=== PATIENT | female | born 1995 | race Two or more races ===

== ENCOUNTER → 2024-10-25 | Outpatient (CLI) | payer MEDICAID ==
[2024-10-25 10:29] LABS: Basophils # (auto) 0 10 ^3/uL (0-0.2); Basophils % (auto) 0.2 % (0.0-2.0); Eosinophils # (auto) 0.1 10 ^3/uL (0-0.8); Eosinophils % (auto) 0.9 % (0.0-7.0); Hematocrit 38.5 % (36.0-46.0); Hemoglobin 13.4 g/dL (12.2-16.2); Lymphocytes # (auto) 1.7 10 ^3/uL (0.4-5.4); Lymphocytes % (auto) 16.6 % (10.0-50.0); Mean Corpuscular Hemoglobin 29.8 pg (28.0-32.0); Mean Corpuscular Hgb Conc. 34.7 g/dL (32.0-36.0); Mean Corpuscular Volume 85.7 fL (80.0-100.0); Monocytes # (auto) 0.6 10 ^3/uL (0-1.3); Monocytes % (auto) 6.1 % (0.0-12.0); Neutrophils # (auto) 7.9 10 ^3/uL (1.6-8.6); Neutrophils % (auto) 76.2 % (37.0-80.0); Nucleated Red Blood Cells % 0.2 %; Platelet Count (auto) 274 10^3/uL (140-450); Red Blood Cells 4.49 10^6/uL (4.0-5.20); Red Cell Distribution Width 14.2 % (11.8-14.3); White Blood Cell 10.3 10^3/uL (4.4-10.8)
[2024-10-25 11:06] LABS: Albumin 4.1 g/dL (3.2-4.8); Alkaline Phosphatase 56 U/L (46-116); Anion Gap 13 (5-15); Aspartate Aminotransferase 20 U/L (13-40); Blood Urea Nitrogen 9 mg/dL (9-23); Calcium 9.7 mg/dL (8.7-10.4); Carbon Dioxide 21 mmol/L (20-31); Chloride 104 mmol/L (98-107); Glucose 91 mg/dL (74-106); Potassium 3.6 mmol/L (3.5-5.1); Sodium 138 mmol/L (136-145)
[2024-10-25 11:07] LABS: Bilirubin, Total 0.4 mg/dL (0.2-1.0); Total Protein 7.1 g/dL (5.7-8.2)
[2024-10-25 11:10] LABS: Alanine Aminotransferase 41 U/L (7-40); Cholesterol 215 mg/dL (< 200); HDL Cholesterol 67 mg/dL (40-59); LDL Cholesterol 125 mg/dL (< 100); Triglycerides 153 mg/dL (< 150)
[2024-10-25 11:12] LABS: Thyroid Stimulating Hormone 1.75 uIU/mL (0.55-4.78)
[2024-10-25 11:28] LABS: Beta HCG, Quantitative 14697.4 mIU/mL (1.5-4.2)
[2024-10-25 11:29] LABS: Amphetamine Screen, Urine Neg (NEGATIVE); Barbiturate Scree,Urine Neg (NEGATIVE); Benzodiazephine Screen, Urine Neg (NEGATIVE); Cannabinoid Screen, Urine Neg (NEGATIVE); Cocaine Screen, Urine Neg (NEGATIVE); Opiate Scree,Urine Neg (NEGATIVE); Phencyclidine Screen, Urine Neg (NEGATIVE)
[2024-10-26 08:06] LABS: RPR Non Reactive (Non Reactive); Varicella Zoster IgG Antibody Reactive (Non Reactive)
[2024-10-26 23:06] LABS: Chlamydia Trachomatis, NAA Negative (Negative); Neisseria gonorrhoeae, NAA Negative (Negative)
== END | disposition home or self-care (01) ==
LOC: LAB 09:14
PROVIDERS: ATTEND Obstetrics & Gynecology
DX: Z34.00 Encounter for supervision of normal first pregnancy, unspecified trimester (principal); Z3A.00 Weeks of gestation of pregnancy not specified
CPT/HCPCS: 36415; 80053; 80061; 80307; 83036; 84439; 84443; 84702; 85025; 86592; 86703; 86762; 86787; 86850; 86900; 86901; 87086; 87340; 87902

== ENCOUNTER 2025-01-18 07:37 | Observation (INO) | payer MEDICAID ==
[2025-01-18] MEDS ORDERED: PREN-96 PO (12:04)
--- NOTE | 2025-01-18 12:08 | DVH ---
Procedure: US BIOPHYSICAL PROFILE 01/18/2025 11:29 AM Indication: GDMA1 Comparison: None Technique: Sonogram of gravid uterus utilizing grayscale and color techniques. FINDINGS: Single living intrauterine gestation. Presentation: Breech Placenta: Fundal heart rate: 135 bpm BRENT: 12.4 cm, DVP: 5.3 cm Maternal cervix: Closed, 3.4 cm in length Biophysical Profile: breathing score: 2 movement score: 2 tone: 2 Quantitative BRENT score: 2 Total score: 8/8 IMPRESSION: 1. Single living as above. 2. Biophysical profile score: 8/8.
--- NOTE | 2025-01-20 08:02 | DVHDS2 ---
Physician Discharge Progress N Final Diagnosis: iup at 31 wks gdm Operations or Procedures: Operations or Procedures nst reactive reviewed Condition on Discharge: Good Disposition: Home Discharge Instructions: Diet: Consistent carbohydrate Activity: No Restrictions, As Tolerated Medications: na Follow Up Care: Specialist: 1w Discharge Statement: "Patient was advised to return to the ER or call 911 if any headaches, dizziness, shortness of breath, chest pain, abdominal pain, bleeding, fevers, or worsening of medical condition. Patient was counseled about treatment plan, medications, possible side effects, patientverbalized understanding. All questions were answered to the best of my ability. This discharge took greater then 30 minutes in planning, reviewing documentation, counseling the patient, and discussing with other team members." Visit Coding OBGYN Date of Service: January 18, 2025 Billing Provider: RYLAND LLOYD DO SPECIAL EQUIPMENT TECHNICIAN Common Visit Codes: [id number] OBS CARE (HIGH) SPECIAL EQUIPMENT TECHNICIAN Procedure Codes: 67990-36- NON-STRESS TEST RYLAND LLOYD DO January 20, 2025 08:02
== END 2025-01-18 12:27 | disposition home or self-care (01) ==
LOC: LDRP 10:56 → UNDOADMOB 11:10 → LDRP 11:10
PROVIDERS: ADMIT Obstetrics & Gynecology; ATTEND Obstetrics & Gynecology
DX: O24.419 Gestational diabetes mellitus in pregnancy, unspecified control (principal); Z98.890 Other specified postprocedural states; Z79.899 Other long term (current) drug therapy; Z3A.31 31 weeks gestation of pregnancy
CPT/HCPCS: 59025; 76819; 81002; 82948; 82962; 94760; G0378

== ENCOUNTER 2025-01-23 06:54 | Observation (INO) | payer MEDICAID ==
[~2025-01-23] VITALS: Ht 144.8 cm; Wt 64.0 kg
[~2025-01-23 06:54] MED LIST: PREN-96 PO
--- NOTE | 2025-01-23 09:01 | DVH ---
BIOPHYSICAL PROFILE HISTORY: GDMA1 TECHNIQUE: Multiple transabdominal real-time grayscale sonographic images through the gravid uterus of the fetus with duplex Doppler color flow and M-mode spectral analysis FINDINGS: BIOPHYSICAL PROFILE: breathing score: 2 movement score: 2 tone score: 2 Quantitative BRENT score: 2 (BRENT: 13.4 Cm.) Total score: 8 The cervix not well visualized Single live fetus in breech presentation. heart rate 144 beats per minute. IMPRESSION: Biophysical profile score: 8/8
[2025-01-23] MEDS: TERBUTALINE SULFATE 1 MG/ML 1ML VIAL SC SCH (09:35)
[2025-01-23] MEDS: BETAMETHASONE ACET (30mg/5ml) 5ml Vial 6mg/ml IM SCH (09:36)
--- NOTE | 2025-01-23 09:44 | DVHDS2 ---
Physician Discharge Progress N Final Diagnosis: testing for GDM, A1 and now PTL Operations or Procedures: Operations or Procedures 29yo IUP@32.2wks, denies UCs/LOF/VB, +FM. Pt has appt with JUSTIN Bolden at [facility] office today. VSS NST reactive TOCO: UCs q3-5 initially, after treatment no UCs PO hydration (2 venu's since she has been awake) Terbutaline x1 Procardia 10mg PO given First dose of Betamethasone IM given SVE: FT/THICK/HIGH FKC/PTL precautions reviewed. Dr. Russo consulted, do CVL sono in office today, agrees with POC. Condition on Discharge: Stable Disposition: Home Discharge Instructions: Diet: Consistent carbohydrate Activity: See Comment Activity comment: pelvic rest Follow Up/Referral: f/u with scheduled visit at [facility] office today for cervical length ultrasound Medications: see med list Follow Up Care: Specialist: f/u on 01/24/25 for second betamethasone Discharge Statement: "Patient was advised to return to the ER or call 911 if any headaches, dizziness, shortness of breath, chest pain, abdominal pain, bleeding, fevers, or worsening of medical condition. Patient was counseled about treatment plan, medications, possible side effects, patientverbalized understanding. All questions were answered to the best of my ability. This discharge took greater then 30 minutes in planning, reviewing documentation, counseling the patient, and discussing with other team members." Visit Coding OBGYN Date of Service: January 23, 2025 Billing Provider: RAMYA SANABRIA CNM MANAGER CUSTOM Common Visit Codes: [id number] OBS CARE (HIGH) MANAGER CUSTOM Procedure Codes: 74149-39- NON-STRESS TEST RAMYA SANABRIA CNM January 23, 2025 09:44
[2025-01-23] MEDS ORDERED: NIFE10CA52 PO (09:47)
[2025-01-23] MEDS: NIFEdipine 10 MG CAP PO ONE (10:26)
== END 2025-01-23 10:30 | disposition home or self-care (01) ==
LOC: UNDOADMOB 08:00 → LDRP 08:00 → UNDODISOB 10:30
PROVIDERS: ADMIT Obstetrics & Gynecology; ATTEND Obstetrics & Gynecology
DX: O24.419 Gestational diabetes mellitus in pregnancy, unspecified control (principal); O60.03 Preterm labor without delivery, third trimester; Z3A.32 32 weeks gestation of pregnancy
CPT/HCPCS: 59025; 76819; 81002; 82948; 82962; 94760; 96372; G0378; J0702; J3105

== ENCOUNTER 2025-01-24 09:05 | Observation (INO) | payer MEDICAID ==
[~2025-01-24] VITALS: Ht 149.9 cm; Wt 59.0 kg
[~2025-01-24 09:05] MED LIST changes: +NIFE10CA52 PO
[2025-01-24] MEDS: BETAMETHASONE ACET (30mg/5ml) 5ml Vial 6mg/ml IM ONE (09:54)
--- NOTE | 2025-01-24 14:34 | DVHDS2 ---
Physician Discharge Progress N Final Diagnosis: PTL, 2nd [place] Operations or Procedures: Operations or Procedures NST REVIWED REACTIVE Condition on Discharge: Good Disposition: Home Discharge Instructions: Diet: Consistent carbohydrate Activity: Light activity Follow Up/Referral: Weekly NST Medications: NA Follow Up Care: Specialist: 1W Discharge Statement: "Patient was advised to return to the ER or call 911 if any headaches, dizziness, shortness of breath, chest pain, abdominal pain, bleeding, fevers, or worsening of medical condition. Patient was counseled about treatment plan, medications, possible side effects, patientverbalized understanding. All questions were answered to the best of my ability. This discharge took greater then 30 minutes in planning, reviewing documentation, counseling the patient, and discussing with other team members." Visit Coding OBGYN Date of Service: January 24, 2025 Billing Provider: RYLAND LLOYD DO ROLLING MACHINE TENDER Common Visit Codes: [id number] OBS CARE (HIGH) ROLLING MACHINE TENDER Procedure Codes: 97572-50- NON-STRESS TEST RYLAND LLOYD DO January 24, 2025 14:34
== END 2025-01-24 10:51 | disposition home or self-care (01) ==
LOC: UNDOADMOB 09:05 → LDRP 09:05 → UNDODISOB 10:51
PROVIDERS: ADMIT Obstetrics & Gynecology; ATTEND Obstetrics & Gynecology
DX: O60.03 Preterm labor without delivery, third trimester (principal); Z3A.32 32 weeks gestation of pregnancy; Z79.899 Other long term (current) drug therapy
CPT/HCPCS: 59025; 81002; 82962; 94760; 96372; G0378; J0702

== ENCOUNTER 2025-01-31 06:29 | Observation (INO) | payer MEDICAID ==
[~2025-01-31] VITALS: Ht 149.9 cm; Wt 62.6 kg
[2025-01-31] MEDS: InsuLIN REG 1unit/0.01ml Soln (100units/ml) ONE (09:31)
[2025-01-31] MEDS: InsuLIN REG 1unit/0.01ml Soln (100units/ml) SC ONE (09:31)
--- NOTE | 2025-01-31 09:40 | DVHDS2 ---
Physician Discharge Progress N Final Diagnosis: gdm 33wks Operations or Procedures: Operations or Procedures nst reviewed reactive,sono Condition on Discharge: Good Disposition: Home Discharge Instructions: Diet: Consistent carbohydrate Activity: No Restrictions, As Tolerated Medications: na Follow Up Care: Specialist: 3d Discharge Statement: "Patient was advised to return to the ER or call 911 if any headaches, dizziness, shortness of breath, chest pain, abdominal pain, bleeding, fevers, or worsening of medical condition. Patient was counseled about treatment plan, medications, possible side effects, patient�verbalized understanding. All questions were answered to the best of my ability. This discharge took greater then 30 minutes in planning, reviewing documentation, counseling the patient, and discussing with other team members." Visit Coding OBGYN Date of Service: January 31, 2025 Billing Provider: YRLAND LLOYD DO INTERNET MARKETING INTERN Common Visit Codes: [id number] OBS CARE (HIGH) INTERNET MARKETING INTERN Procedure Codes: 60459-53- NON-STRESS TEST RYLAND LLOYD DO January 31, 2025 09:39
--- NOTE | 2025-01-31 10:06 | DVH ---
BIOPHYSICAL PROFILE HISTORY: GDMA1 TECHNIQUE: Multiple transabdominal real-time grayscale sonographic images through the gravid uterus o f the fetus with duplex doppler color flow and M-mode spectral analysis FINDINGS: BIOPHYSICAL PROFILE: breathing score: 2 movement score: 2 tone score: 2 Quantitative BRENT score: 2 (BRENT: 10.6 cm.) Total score: 8/8 The cervix is closed Single live fetus in breech presentation. heart rate 143 beats per minute. Anterior placenta without previa or abruption Biophysical profile score 8/8 corresponding to an CLARE of 03/14/25 IMPRESSION: Biophysical profile score: 8/8 Breech position.
== END 2025-01-31 10:17 | disposition home or self-care (01) ==
LOC: LDRP 09:00 → UNDOADMOB 09:00 → LDRP 09:07
PROVIDERS: ADMIT Obstetrics & Gynecology; ATTEND Obstetrics & Gynecology
DX: O24.419 Gestational diabetes mellitus in pregnancy, unspecified control (principal); Z79.899 Other long term (current) drug therapy; Z3A.33 33 weeks gestation of pregnancy
CPT/HCPCS: 59025; 76819; 81002; 82948; 82962; 94760; 96372; G0378; J1815

== ENCOUNTER 2025-02-03 09:57 | Observation (INO) | payer MEDICAID ==
--- NOTE | 2025-02-03 10:43 | DVH ---
EXAM: US Biophysical Profile Without Non-Stress Testing CLINICAL INDICATION: GDMA1 TECHNIQUE: Real-time ultrasound of the maternal pelvis for biophysical profile evaluation with image documentation. COMPARISON: US BIOPHYSICAL PROFILE on DOS: 01/31/25, US BIOPHYSICAL PROFILE on DOS: 01/23/25, US BIOPH YSICAL PROFILE on DOS: 01/18/25 FINDINGS: BREATHING MOVEMENTS: Present. Score 2/2. GROSS BODY MOVEMENTS: Present. Score 2/2. TONE: Present. Score 2/2. QUALITATIVE AMNIOTIC FLUID VOLUME: BRENT 9.2 cm. HEART RATE: heart rate 140 beats per minute. PRESENTATION: Breech presentation. PLACENTA: Placenta anterior. OTHER FINDINGS: . . IMPRESSION: Normal biophysical profile with score of 8/8.
--- NOTE | 2025-02-03 13:35 | DVHDS2 ---
Physician Discharge Progress N Final Diagnosis: 3rd trim , GDMA1 Encounter for surveillance Operations or Procedures: Operations or Procedures NST/BPP/ BRENT All NORMAL Condition on Discharge: Stable Disposition: Home Discharge Instructions: Diet: Consistent carbohydrate Activity: Light activity Follow Up/Referral: As scheduled Medications: N/A Follow Up Care: Discharge Statement: "Patient was advised to return to the ER or call 911 if any headaches, dizziness, shortness of breath, chest pain, abdominal pain, bleeding, fevers, or worsening of medical condition. Patient was counseled about treatment plan, medications, possible side effects, patientverbalized understanding. All questions were answered to the best of my ability. This discharge took greater then 30 minutes in planning, reviewing documentation, counseling the patient, and discussing with other team members." Visit Coding OBGYN Date of Service: February 03, 2025 Billing Provider: SONIA GAUTAM DO SALES OPERATIONS Common Visit Codes: [id number]-OJF/OBS SAME DATE (MOD) SONIA GAUTAM DO February 03, 2025 13:35
== END 2025-02-03 11:15 | disposition home or self-care (01) ==
LOC: LDRP 09:57
PROVIDERS: ADMIT Obstetrics & Gynecology; ATTEND Obstetrics & Gynecology
DX: O24.419 Gestational diabetes mellitus in pregnancy, unspecified control (principal); Z98.890 Other specified postprocedural states; Z79.899 Other long term (current) drug therapy; Z3A.33 33 weeks gestation of pregnancy
CPT/HCPCS: 59025; 76819; 81002; 82962; 94760; G0378

== ENCOUNTER 2025-02-07 07:13 | Observation (INO) | payer MEDICAID ==
--- NOTE | 2025-02-07 10:46 | DVH ---
BIOPHYSICAL PROFILE HISTORY: GDMA1 Comparison Study: US BIOPHYSICAL PROFILE on DOS: 02/03/25, US BIOPHYSICAL PROFILE on DOS: 01/31/25, US BIOPHYSICAL PROFILE on DOS: 01/23/25, US BIOPHYSICAL PROFILE on DOS: 01/18/25 TECHNIQUE: Multiple real-time grayscale sonographic images through the gravid uterus of the fetus wi th duplex Doppler color flow and M-mode spectral analysis FINDINGS: BIOPHYSICAL PROFILE: breathing score: 2 movement score: 2 tone score: 2 Quantitative BRENT score: 2 (BRENT: 10.2 Cm.) Total score: 8 The cervix is not visualized. Single live fetus in breech presentation. heart rate 142 beats per minute. Anterior placenta without previa or abruption IMPRESSION: Biophysical profile score: 8
--- NOTE | 2025-02-07 13:33 | DVHDS2 ---
Physician Discharge Progress N Final Diagnosis: gdm 34wks Operations or Procedures: Operations or Procedures nst reactive reviwed,sono Condition on Discharge: Good Disposition: Home Discharge Instructions: Diet: Consistent carbohydrate Activity: No Restrictions, As Tolerated Medications: na Follow Up Care: Specialist: 3d Discharge Statement: "Patient was advised to return to the ER or call 911 if any headaches, dizziness, shortness of breath, chest pain, abdominal pain, bleeding, fevers, or worsening of medical condition. Patient was counseled about treatment plan, medications, possible side effects, patientverbalized understanding. All questions were answered to the best of my ability. This discharge took greater then 30 minutes in planning, reviewing documentation, counseling the patient, and discussing with other team members." Visit Coding OBGYN Date of Service: February 07, 2025 Billing Provider: RYLAND LLOYD DO SCHOOL AGE PROGRAM TEACHER Common Visit Codes: 04683-[id number] OBS CARE (HIGH) SCHOOL AGE PROGRAM TEACHER Procedure Codes: 69282-58- NON-STRESS TEST RYLAND LLOYD DO February 07, 2025 13:33
== END 2025-02-07 11:26 | disposition home or self-care (01) ==
LOC: UNDOADMOB 09:57 → LDRP 09:57
PROVIDERS: ADMIT Obstetrics & Gynecology; ATTEND Obstetrics & Gynecology
DX: O24.419 Gestational diabetes mellitus in pregnancy, unspecified control (principal); O32.1XX0 Maternal care for breech presentation, not applicable or unspecified; Z3A.34 34 weeks gestation of pregnancy; Z79.899 Other long term (current) drug therapy
CPT/HCPCS: 59025; 76819; 81002; 82948; 82962; 94760; G0378

== ENCOUNTER 2025-02-10 07:14 | Observation (INO) | payer MEDICAID ==
[~2025-02-10] VITALS: Ht 144.8 cm; Wt 62.6 kg
--- NOTE | 2025-02-10 10:57 | DVH ---
BIOPHYSICAL PROFILE HISTORY: GDMA1 TECHNIQUE: Multiple transabdominal real-time grayscale sonographic images through the gravid uterus o f the fetus with duplex doppler color flow and M-mode spectral analysis FINDINGS: BIOPHYSICAL PROFILE: breathing score: 2 movement score: 2 tone score: 2 Quantitative BRENT score: 2 (BRENT: 13.3 cm.) Total score: 8/8 Single live fetus in breech presentation. heart rate 116 beats per minute. Anterior placenta without previa or abruption Biophysical profile score 8/8 corresponding to an CLARE of 03/18/25 IMPRESSION: Biophysical profile score: 8/8
[2025-02-10] MEDS ORDERED: LACTATED RINGER'S 1,000 ML IV ONE (11:15)
[2025-02-10] MEDS: NIFEdipine 10 MG CAP PO ONE (11:31)
--- NOTE | 2025-02-11 09:38 | DVHDS2 ---
Discharge Summary Date of Admission February 10, 2025 at 10:00 Date of Discharge: February 10, 2025 Admitting Diagnosis GDM A1 rule out labor Labs/Diagnostic Data: Laboratory Results Test 02/10/25 10:36 POC Glucose 86 mg/dl (70-106) Brief Hx & Hospital Course: Patient is here for routine NST which was reactive reassuring ultrasound for A1 Operations or Procedures NST ultrasound Condition at Discharge: Good Final Diagnosis/Problems List 34 week GDM A1 contractions no labor Discharge Disposition: Home Discharge Instruct/Medications Diet: Consistent carbohydrate Activity: Light activity Discharge Statement: "Patient was advised to return to the ER or call 911 if any headaches, dizziness, shortness of breath, chest pain, abdominal pain, bleeding, fevers, or worsening of medical condition. Patient was counseled about treatment plan, medications, possible side effects, patientverbalized understanding. All questions were answered to the best of my ability. This discharge took greater then 30 minutes in planning, reviewing documentation, counseling the patient, and discussing with other team members." ASSESSMENT ASSESSMENT Assessment Visit Coding OBGYN Date of Service: February 10, 2025 Billing Provider: TONYA TAMAYO DO MANAGER FINANCE Common Visit Codes: [id number] INP/OBS CARE(MOD), 50560-TEOJEAGDRS INP/OBS CARE(HIGH), 46177-BMQ/OBS SAME DATE (LOW) MANAGER FINANCE Procedure Codes: 02719-00- NON-STRESS TEST TONYA TAMAYO DO February 11, 2025 09:38
== END 2025-02-10 12:21 | disposition home or self-care (01) ==
LOC: LDRP 10:00
PROVIDERS: ADMIT Obstetrics & Gynecology; ATTEND Obstetrics & Gynecology
DX: O24.419 Gestational diabetes mellitus in pregnancy, unspecified control (principal); O60.03 Preterm labor without delivery, third trimester; Z3A.34 34 weeks gestation of pregnancy; Z79.899 Other long term (current) drug therapy
CPT/HCPCS: 59025; 76819; 81002; 82948; 82962; 94760; 96360; 96361; G0378

== ENCOUNTER 2025-02-15 09:12 | Observation (INO) | payer MEDICAID ==
--- NOTE | 2025-02-15 11:41 | DVH ---
CLINICAL HISTORY: Gestational diabetes. COMPARISON: US BIOPHYSICAL PROFILE on DOS: 02/10/25, US BIOPHYSICAL PROFILE on DOS: 02/07/25, US BIOPHY SICAL PROFILE on DOS: 02/03/25 TECHNIQUE: biophysical profile was performed. Transabdominal sonographic images of the fetus we re obtained. FINDINGS: The fetus is in breech position. heart rate measures 127 BPM. Amniotic fluid index me asures 10.7 cm. The placenta is anterior in position. BPP profile is an overall score of 8/8, with 2/2 points for breathing, with at least one episode of breathing over a 30 second duration during a 30 minute observation, 2/2 points for m ovements, with 3 or more discrete body or limb movements, 2/2 points for tone, with one or more episodes of extremity extension with return to flexion, or opening and closing of hand, and 2/ 2 points for amniotic fluid, with at least 1 pocket of amniotic fluid that measures 2 cm in 2 perpend icular planes. IMPRESSION: BPP score of 8/8.
--- NOTE | 2025-02-16 22:19 | DVHDS2 ---
Physician Discharge Progress N Final Diagnosis: gdm 35wks Operations or Procedures: Operations or Procedures nst reactive reviwed,sono Condition on Discharge: Good Disposition: Home Discharge Instructions: Diet: Consistent carbohydrate Activity: No Restrictions, As Tolerated Follow Up/Referral: as scheduled. Medications: na Follow Up Care: Specialist: 1w Discharge Statement: "Patient was advised to return to the ER or call 911 if any headaches, dizziness, shortness of breath, chest pain, abdominal pain, bleeding, fevers, or worsening of medical condition. Patient was counseled about treatment plan, medications, possible side effects, patientverbalized understanding. All questions were answered to the best of my ability. This discharge took greater then 30 minutes in planning, reviewing documentation, counseling the patient, and discussing with other team members." Visit Coding OBGYN Date of Service: February 15, 2025 Billing Provider: RYALND LLOYD DO BATCH FREEZER OPERATOR Common Visit Codes: [id number] OBS CARE (HIGH) BATCH FREEZER OPERATOR Procedure Codes: 77305-82- NON-STRESS TEST RYLAND LLOYD DO February 16, 2025 22:19
== END 2025-02-15 12:28 | disposition home or self-care (01) ==
LOC: UNDOADMOB 10:56 → LDRP 10:56 → UNDODISOB 12:28
PROVIDERS: ADMIT Obstetrics & Gynecology; ATTEND Obstetrics & Gynecology
DX: O24.419 Gestational diabetes mellitus in pregnancy, unspecified control (principal); Z3A.35 35 weeks gestation of pregnancy; Z79.899 Other long term (current) drug therapy
CPT/HCPCS: 59025; 76819; 81002; 82962; 94760; G0378

== ENCOUNTER 2025-02-19 06:40 | Observation (INO) | payer MEDICAID ==
--- NOTE | 2025-02-19 09:56 | DVH ---
BIOPHYSICAL PROFILE HISTORY: GDMA1 TECHNIQUE: Multiple transabdominal real-time grayscale sonographic images through the gravid uterus of the fetus with duplex Doppler color flow and M-mode spectral analysis FINDINGS: BIOPHYSICAL PROFILE: breathing score: 2 movement score: 2 tone score: 2 Quantitative BRENT score: 2 (BRENT: 13.8 Cm.) Total score: 8 The cervix not well visualized Single live fetus in presentation. heart rate 142 beats per minute. Anterior placenta without previa or abruption IMPRESSION: Biophysical profile score: 8/8
[2025-02-19 09:57] LABS: Urine Bacteria FEW /hpf (None Seen); Urine Blood Negative /uL (Negative); Urine Clarity Clear (Clear); Urine Color Light-Yellow (Yellow); Urine Protein, UAD Negative (Negative); Urine Specific Gravity 1.019 (1.001-1.035); Urine Squamous Epithelial Cell FEW /hpf (<5); Urine Urobilinogen Normal (Negative); Urine WBC 1 /HPF (0-5); Urine pH 6.5 (5.0-9.0)
[2025-02-19 09:59] LABS: Protein, Urine 12.7 mg/dL (1-14)
[2025-02-19 10:02] LABS: Creatinine, Urine 52.77 mg/dL (30.0-125.0); Urine Protein/Creatinine Ratio 0.24
[2025-02-19 10:16] LABS: Basophils # (auto) 0 10 ^3/uL (0-0.2); Basophils % (auto) 0.1 % (0.0-2.0); Eosinophils # (auto) 0.1 10 ^3/uL (0-0.8); Eosinophils % (auto) 1.1 % (0.0-7.0); Hematocrit 37.9 % (36.0-46.0); Lymphocytes # (auto) 1.4 10 ^3/uL (0.4-5.4); Lymphocytes % (auto) 14.3 % (10.0-50.0); Mean Corpuscular Hgb Conc. 34.4 g/dL (32.0-36.0); Monocytes # (auto) 0.8 10 ^3/uL (0-1.3); Monocytes % (auto) 8.3 % (0.0-12.0); Neutrophils # (auto) 7.2 10 ^3/uL (1.6-8.6); Neutrophils % (auto) 76.2 % (37.0-80.0); Nucleated Red Blood Cells % 0.1 %; Platelet Count (auto) 190 10^3/uL (140-450); Red Blood Cells 4.35 10^6/uL (4.0-5.20); Red Cell Distribution Width 13.9 % (11.8-14.3); White Blood Cell 9.5 10^3/uL (4.4-10.8)
[2025-02-19 10:36] LABS: Alanine Aminotransferase 15 U/L (7-40); Albumin 3.5 g/dL (3.2-4.8); Anion Gap 7 (5-15); BUN/Creatinine Ratio 17.6 (10.0-20.0); Bilirubin, Total 0.4 mg/dL (0.2-1.0); Blood Urea Nitrogen 9 mg/dL (9-23); Carbon Dioxide 24 mmol/L (20-31); Chloride 105 mmol/L (98-107); Glucose 96 mg/dL (74-106); Potassium 4.1 mmol/L (3.5-5.1); Total Protein 6.4 g/dL (5.7-8.2); Uric Acid 7.5 mg/dL (3.1-7.8)
[2025-02-19 10:38] LABS: Alkaline Phosphatase 174 U/L (46-116); Aspartate Aminotransferase 13 U/L (13-40); Sodium 136 mmol/L (136-145)
[2025-02-19 10:39] LABS: INR 0.95 (0.9-1.15); Partial Thromboplastin Time 27.6 SEC (24.5-34.5); Prothrombin Time 10.1 sec (9.3-11.8)
--- NOTE | 2025-02-20 00:16 | DVHDS2 ---
Physician Discharge Progress N Final Diagnosis: gdm 36wks Operations or Procedures: Operations or Procedures nst reactive reviewed,sono Condition on Discharge: Good Disposition: Home Discharge Instructions: Diet: Consistent carbohydrate Activity: No Restrictions, As Tolerated Medications: na Follow Up Care: Specialist: 1w Discharge Statement: "Patient was advised to return to the ER or call 911 if any headaches, dizziness, shortness of breath, chest pain, abdominal pain, bleeding, fevers, or worsening of medical condition. Patient was counseled about treatment plan, medications, possible side effects, patientverbalized understanding. All questions were answered to the best of my ability. This discharge took greater then 30 minutes in planning, reviewing documentation, counseling the patient, and discussing with other team members." Visit Coding OBGYN Date of Service: Feb 19, 2025 Billing Provider: RYLAND LLOYD DO CLINICAL NUTRITION MANAGER Common Visit Codes: 56953-[id number] INP/OBS CARE (HIGH) CLINICAL NUTRITION MANAGER Procedure Codes: 11304-17- NON-STRESS TEST RYLAND LLOYD DO Feb 20, 2025 00:16
== END 2025-02-19 11:07 | disposition home or self-care (01) ==
LOC: LDRP 08:59 → UNDOADMOB 08:59 → LDRP 09:06
PROVIDERS: ADMIT Obstetrics & Gynecology; ATTEND Obstetrics & Gynecology
DX: O24.419 Gestational diabetes mellitus in pregnancy, unspecified control (principal); R79.1 Abnormal coagulation profile; Z3A.36 36 weeks gestation of pregnancy; Z79.899 Other long term (current) drug therapy; Z98.890 Other specified postprocedural states
CPT/HCPCS: 36415; 59025; 76819; 80053; 81001; 81002; 82570; 82948; 82962; 84156; 84550; 85025; 85610; 85730; 94760; G0378

== ENCOUNTER 2025-02-22 11:59 | Observation (INO) | payer MEDICAID ==
--- NOTE | 2025-02-22 14:44 | DVH ---
BIOPHYSICAL PROFILE HISTORY: GDMA1 TECHNIQUE: Multiple transabdominal real-time grayscale sonographic images through the gravid uterus of the fetus with duplex Doppler color flow and M-mode spectral analysis FINDINGS: BIOPHYSICAL PROFILE: breathing score: 2 movement score: 2 tone score: 2 Quantitative BRENT score: 2 (BRENT: 13.0 Cm.) Total score: 8 The cervix not well visualized. Single live fetus in breech presentation. heart rate 150 beats per minute. Grade 2 posterior placenta without previa or abruption IMPRESSION: Biophysical profile score: 8
--- NOTE | 2025-02-24 08:42 | DVHDS2 ---
Physician Discharge Progress N Final Diagnosis: gdm 37wks Operations or Procedures: Operations or Procedures nst reactive reviwed,sono Condition on Discharge: Good Disposition: Home Discharge Instructions: Diet: Consistent carbohydrate Activity: No Restrictions, As Tolerated Follow Up/Referral: as scheduled. Medications: na Follow Up Care: Specialist: 3d Discharge Statement: "Patient was advised to return to the ER or call 911 if any headaches, dizziness, shortness of breath, chest pain, abdominal pain, bleeding, fevers, or worsening of medical condition. Patient was counseled about treatment plan, medications, possible side effects, patientverbalized understanding. All questions were answered to the best of my ability. This discharge took greater then 30 minutes in planning, reviewing documentation, counseling the patient, and discussing with other team members." Visit Coding OBGYN Date of Service: Feb 22, 2025 Billing Provider: RYLAND LLOYD DO ORNAMENTAL METAL WORKER Common Visit Codes: 86469-[id number] OBS CARE (HIGH) ORNAMENTAL METAL WORKER Procedure Codes: 94517-90- NON-STRESS TEST RYLAND LLOYD DO Feb 24, 2025 08:42
== END 2025-02-22 15:16 | disposition home or self-care (01) ==
LOC: UNDOADMOB 11:59 → LDRP 11:59
PROVIDERS: ADMIT Obstetrics & Gynecology; ATTEND Obstetrics & Gynecology
DX: O24.419 Gestational diabetes mellitus in pregnancy, unspecified control (principal); Z3A.37 37 weeks gestation of pregnancy; Z79.899 Other long term (current) drug therapy; Z98.890 Other specified postprocedural states
CPT/HCPCS: 59025; 76819; 81002; 82948; 82962; 94760; G0378

== ENCOUNTER 2025-02-26 03:23 | Observation (INO) | payer MEDICAID ==
--- NOTE | 2025-02-26 09:59 | DVH ---
BIOPHYSICAL PROFILE HISTORY: GDMA1 TECHNIQUE: Multiple transabdominal real-time grayscale sonographic images through the gravid uterus of the fetus with duplex Doppler color flow and M-mode spectral analysis FINDINGS: BIOPHYSICAL PROFILE: breathing score: 2 movement score: 2 tone score: 2 Quantitative BRENT score: 2 (BRENT: 17.7 Cm.) Total score: 8 The cervix not well visualized. Single live fetus in breech presentation. heart rate 131 beats per minute. Fundal placenta without previa or abruption IMPRESSION: Biophysical profile score: 8
--- NOTE | 2025-02-26 23:19 | DVHDS2 ---
Discharge Summary Date of Admission Feb 26, 2025 at 09:13 Date of Discharge: Feb 26, 2025 Admitting Diagnosis Thirty-seven week GDM A1 Labs/Diagnostic Data: Laboratory Results Test 02/26/25 09:48 POC Glucose 103 mg/dl (70-106) Brief Hx & Hospital Course: NST performed 3 showing ultrasound showing Consults/Reason for consult GDM A1 Operations or Procedures None Condition at Discharge: Good Final Diagnosis/Problems List GDM A1 37 09/26 Discharge Disposition: Home Discharge Instruct/Medications Diet: Consistent carbohydrate Activity: No Restrictions, As Tolerated Activity comment: Kick counseling precautions Follow Up/Referral: As scheduled Discharge Statement: "Patient was advised to return to the ER or call 911 if any headaches, dizziness, shortness of breath, chest pain, abdominal pain, bleeding, fevers, or worsening of medical condition. Patient was counseled about treatment plan, medications, possible side effects, patientverbalized understanding. All questions were answered to the best of my ability. This discharge took greater then 30 minutes in planning, reviewing documentation, counseling the patient, and discussing with other team members." ASSESSMENT ASSESSMENT Assessment Visit Coding OBGYN Date of Service: Feb 26, 2025 Billing Provider: TONYA TAMAYO DO INTERPRETER Common Visit Codes: 01896-JQK/OBS SAME DATE (MOD), 35168-QRT/OBS SAME DATE (HIGH) INTERPRETER Procedure Codes: 04204-01- NON-STRESS TEST TONYA TAMAYO DO Feb 26, 2025 23:19
== END 2025-02-26 11:07 | disposition home or self-care (01) ==
LOC: UNDOADMOB 09:07 → LDRP 09:07
PROVIDERS: ADMIT Obstetrics & Gynecology; ATTEND Obstetrics & Gynecology
DX: O24.410 Gestational diabetes mellitus in pregnancy, diet controlled (principal); Z3A.37 37 weeks gestation of pregnancy; Z79.899 Other long term (current) drug therapy; Z98.890 Other specified postprocedural states
CPT/HCPCS: 59025; 76819; 81002; 82948; 82962; 94760; G0378

== ENCOUNTER 2025-03-01 06:34 | Observation (INO) | payer MEDICAID ==
--- NOTE | 2025-03-01 10:17 | DVH ---
BIOPHYSICAL PROFILE HISTORY: GDMA1/BREECH TECHNIQUE: Multiple transabdominal real-time grayscale sonographic images through the gravid uterus of the fetus with duplex Doppler color flow and M-mode spectral analysis FINDINGS: BIOPHYSICAL PROFILE: breathing score: 2 movement score: 2 tone score: 2 Quantitative BRENT score: 2 (BRENT: 9.89 Cm.) Total score: 8 The cervix not well visualized. Single live fetus in breech presentation. heart rate 138 beats per minute. Anterior placenta without previa or abruption IMPRESSION: Biophysical profile score: 8/8
--- NOTE | 2025-03-02 09:45 | DVHDS2 ---
Physician Discharge Progress N Final Diagnosis: 37wks gdm breech Operations or Procedures: Operations or Procedures nst reactive reviwed,sono Condition on Discharge: Good Disposition: Home Discharge Instructions: Diet: Consistent carbohydrate Activity: No Restrictions, As Tolerated Medications: na Follow Up Care: Specialist: 1d Discharge Statement: "Patient was advised to return to the ER or call 911 if any headaches, dizziness, shortness of breath, chest pain, abdominal pain, bleeding, fevers, or worsening of medical condition. Patient was counseled about treatment plan, medications, possible side effects, patientverbalized understanding. All questions were answered to the best of my ability. This discharge took greater then 30 minutes in planning, reviewing documentation, counseling the patient, and discussing with other team members." Visit Coding OBGYN Date of Service: Mar 01, 2025 Billing Provider: RYLAND LLOYD DO DIGITAL ACCOUNT EXECUTIVE Common Visit Codes: [id number] OBS CARE (HIGH) DIGITAL ACCOUNT EXECUTIVE Procedure Codes: 12430-39- NON-STRESS TEST RYLAND LLOYD DO Mar 02, 2025 09:45
== END 2025-03-01 10:45 | disposition home or self-care (01) ==
LOC: LDRP 09:08
PROVIDERS: ADMIT Obstetrics & Gynecology; ATTEND Obstetrics & Gynecology
DX: O24.419 Gestational diabetes mellitus in pregnancy, unspecified control (principal); O32.1XX0 Maternal care for breech presentation, not applicable or unspecified; Z3A.37 37 weeks gestation of pregnancy; Z79.899 Other long term (current) drug therapy
CPT/HCPCS: 59025; 76819; 81002; 82948; 82962; 94760; G0378

== ENCOUNTER 2025-03-03 08:58 | Observation (INO) | payer MEDICAID ==
--- NOTE | 2025-03-03 11:17 | DVH ---
BIOPHYSICAL PROFILE HISTORY: GDMA1/BREECH TECHNIQUE: Multiple transabdominal real-time grayscale sonographic images through the gravid uterus o f the fetus with duplex doppler color flow and M-mode spectral analysis FINDINGS: BIOPHYSICAL PROFILE: breathing score: 2 movement score: 2 tone score: 2 Quantitative BRENT score: 2 (BRENT: 12.0 cm.) Total score: 8/8 Single live fetus in breech presentation. heart rate 125 beats per minute. Anterior placenta without previa or abruption. Possible accessory placenta is seen. Biophysical profile score 8/8 corresponding to an CLARE of 03/18/25 IMPRESSION: Biophysical profile score: 8/8 Possible accessory placenta is seen. Breech.
--- NOTE | 2025-03-03 15:50 | DVHDS2 ---
Physician Discharge Progress N Final Diagnosis: IUP 38 wk, Breech GDMA1 Operations or Procedures: Operations or Procedures NST/BPP Ultrasound PATIENT: HELEN PERALTA ACCT: [id number] UNIT: [id number] : 1995 LOC: [facility] ROOM / BED: TRIAGE1 / A AGE / SEX: 29 / F ADM STATUS: ADM IN SERVICE 1015 ORDERING PHYSICIAN: SONIA GAUTAM DO PROCEDURE(s): BPP - BIOPHYSICAL PROFILE REASON: GDMA1/BREECH ORDER NUMBER(s): [id number], ACCESSION NUMBER(s): [id number] BIOPHYSICAL PROFILE HISTORY: GDMA1/BREECH TECHNIQUE: Multiple transabdominal real-time grayscale sonographic images through the gravid uterus of the fetus with duplex doppler color flow and M-mode spectral analysis FINDINGS: BIOPHYSICAL PROFILE: breathing score: 2 movement score: 2 tone score: 2 Quantitative BRENT score: 2 (BRENT: 12.0 cm.) Total score: 8/8 Single live fetus in breech presentation. heart rate 125 beats per minute. Anterior placenta without previa or abruption. Possible accessory placenta is seen. Biophysical profile score 8/8 corresponding to an CLARE of 03/18/25 IMPRESSION: Biophysical profile score: 8/8 Possible accessory placenta is seen. Breech. ATED BY: KHRIS BELL MD DICTATED DATE/TIME: 03/03/25 1115 Condition on Discharge: Stable Disposition: Home Discharge Instructions: Diet: Consistent carbohydrate Activity: No Restrictions, As Tolerated Activity comment: Pelvic rest Follow Up/Referral: As scheduled Medications: N/A Follow Up Care: Discharge Statement: "Patient was advised to return to the ER or call 911 if any headaches, dizziness, shortness of breath, chest pain, abdominal pain, bleeding, fevers, or worsening of medical condition. Patient was counseled about treatment plan, medications, possible side effects, patientverbalized understanding. All questions were answered to the best of my ability. This discharge took greater then 30 minutes in planning, reviewing documentation, counseling the patient, and discussing with other team members." Visit Coding OBGYN Date of Service: Mar 03, 2025 Billing Provider: GARIBALDI,SONIA G DO MONTESSORI TODDLER TEACHER Common Visit Codes: 80505-XOC/OBS SAME DATE (MOD) SONIA GAUTAM DO Mar 03, 2025 15:50
== END 2025-03-03 11:47 | disposition home or self-care (01) ==
LOC: LDRP 10:03
PROVIDERS: ADMIT Obstetrics & Gynecology; ATTEND Obstetrics & Gynecology
DX: O24.419 Gestational diabetes mellitus in pregnancy, unspecified control (principal); O32.1XX0 Maternal care for breech presentation, not applicable or unspecified; Z79.899 Other long term (current) drug therapy; Z3A.38 38 weeks gestation of pregnancy
CPT/HCPCS: 59025; 76819; 81002; 82948; 82962; 94760; G0378

== ENCOUNTER 2025-03-05 06:24 | Observation (INO) | payer MEDICAID ==
--- NOTE | 2025-03-05 09:43 | DVH ---
BIOPHYSICAL PROFILE HISTORY: GDMA1/BREECH TECHNIQUE: Multiple transabdominal real-time grayscale sonographic images through the gravid uterus of the fetus with duplex Doppler color flow and M-mode spectral analysis FINDINGS: BIOPHYSICAL PROFILE: breathing score: 2 movement score: 2 tone score: 2 Quantitative BRENT score: 2 (BRENT: 14 Cm.) Total score: 8 The cervix was not seen Single live fetus in breech presentation. heart rate 133 beats per minute. Grade II anterior placenta without previa or abruption IMPRESSION: Biophysical profile score: 8/8
[2025-03-06] MEDS ORDERED: DOCU-94 PO (06:22)
[2025-03-06] MEDS ORDERED: IBUP-1456 PO (06:22)
[2025-03-06] MEDS ORDERED: HYDR-4072 PO (06:22)
== END 2025-03-05 10:27 | disposition home or self-care (01) ==
LOC: LDRP 08:50 → UNDOADMOB 08:50 → LDRP 08:57
PROVIDERS: ADMIT Obstetrics & Gynecology; ATTEND Obstetrics & Gynecology
DX: O24.419 Gestational diabetes mellitus in pregnancy, unspecified control (principal); Z98.890 Other specified postprocedural states; Z79.899 Other long term (current) drug therapy; Z3A.38 38 weeks gestation of pregnancy
CPT/HCPCS: 59025; 76819; 81002; 82948; 82962; 94760; G0378

== ENCOUNTER 2025-03-06 04:01 | Inpatient (IN) | payer MEDICAID ==
[2025-03-05 09:50] LABS: Basophils # (auto) 0 10 ^3/uL (0-0.2); Basophils % (auto) 0.2 % (0.0-2.0); Eosinophils # (auto) 0.1 10 ^3/uL (0-0.8); Eosinophils % (auto) 0.7 % (0.0-7.0); Hematocrit 37.7 % (36.0-46.0); Hemoglobin 13.2 g/dL (12.2-16.2); Lymphocytes # (auto) 1.5 10 ^3/uL (0.4-5.4); Lymphocytes % (auto) 18.8 % (10.0-50.0); Mean Corpuscular Hemoglobin 29.9 pg (28.0-32.0); Mean Corpuscular Volume 85.4 fL (80.0-100.0); Monocytes # (auto) 0.6 10 ^3/uL (0-1.3); Monocytes % (auto) 6.9 % (0.0-12.0); Neutrophils % (auto) 73.4 % (37.0-80.0); Nucleated Red Blood Cells % 0.7 %; Platelet Count (auto) 171 10^3/uL (140-450); Red Blood Cells 4.41 10^6/uL (4.0-5.20); Red Cell Distribution Width 14.3 % (11.8-14.3); White Blood Cell 8.2 10^3/uL (4.4-10.8)
[2025-03-05 09:54] LABS: Urine Bacteria MOD /hpf (None Seen); Urine Blood Negative /uL (Negative); Urine Clarity Turbid (Clear); Urine Color Colorless (Yellow); Urine Protein, UAD Negative (Negative); Urine Specific Gravity 1.013 (1.001-1.035); Urine Squamous Epithelial Cell MOD /hpf (<5); Urine Urobilinogen Normal (Negative); Urine WBC 6 /HPF (0-5); Urine pH 5.5 (5.0-9.0)
[2025-03-05 10:03] LABS: Amphetamine Screen, Urine Neg (NEGATIVE); Barbiturate Scree,Urine Neg (NEGATIVE); Benzodiazephine Screen, Urine Neg (NEGATIVE); Cannabinoid Screen, Urine Neg (NEGATIVE); Cocaine Screen, Urine Neg (NEGATIVE); Opiate Scree,Urine Neg (NEGATIVE); Phencyclidine Screen, Urine Neg (NEGATIVE)
[2025-03-05 10:06] LABS: Alanine Aminotransferase 19 U/L (7-40); Albumin 3.5 g/dL (3.2-4.8); Alkaline Phosphatase 168 U/L (46-116); Anion Gap 11 (5-15); Aspartate Aminotransferase 20 U/L (<34); BUN/Creatinine Ratio 16.7 (10.0-20.0); Bilirubin, Total 0.5 mg/dL (0.2-1.0); Blood Urea Nitrogen 12 mg/dL (9-23); Calcium 9.6 mg/dL (8.7-10.4); Carbon Dioxide 20 mmol/L (20-31); Chloride 108 mmol/L (98-107); Glucose 89 mg/dL (74-106); Potassium 3.8 mmol/L (3.5-5.1); Sodium 139 mmol/L (136-145); Total Protein 6.5 g/dL (5.7-8.2)
[2025-03-05 10:26] LABS: INR 0.96 (0.9-1.15); Partial Thromboplastin Time 27.5 SEC (24.5-34.5); Prothrombin Time 10.2 sec (9.3-11.8)
--- NOTE | 2025-03-05 23:10 | DVHDS2 ---
Discharge Summary Date of Admission March 05, 2025 Date of Discharge: Mar 05, 2025 Admitting Diagnosis GDM A1 38-1/7 weeks breech position Labs/Diagnostic Data: Laboratory Results Test 03/05/25 09:30 03/05/25 09:00 White Blood Count 8.2 10^3/uL (4.4-10.8) Red Blood Count 4.41 10^6/uL (4.0-5.20) Hemoglobin 13.2 g/dL (12.2-16.2) Hematocrit 37.7 % (36.0-46.0) Mean Corpuscular Volume 85.4 fL (80.0-100.0) Mean Corpuscular Hemoglobin 29.9 pg (28.0-32.0) Mean Corpuscular Hemoglobin Concent 35.0 g/dL (32.0-36.0) Red Cell Distribution Width 14.3 % (11.8-14.3) Platelet Count 171 10^3/uL (140-450) Mean Platelet Volume 9.6 fL (6.9-10.8) Neutrophils (%) (Auto) 73.4 % (37.0-80.0) Lymphocytes (%) (Auto) 18.8 % (10.0-50.0) Monocytes (%) (Auto) 6.9 % (0.0-12.0) Eosinophils (%) (Auto) 0.7 % (0.0-7.0) Basophils (%) (Auto) 0.2 % (0.0-2.0) Neutrophils # (Auto) 6.0 10 ^3/uL (1.6-8.6) Lymphocytes # (Auto) 1.5 10 ^3/uL (0.4-5.4) Monocytes # (Auto) 0.6 10 ^3/uL (0-1.3) Eosinophils # (Auto) 0.1 10 ^3/uL (0-0.8) Basophils # (Auto) 0 10 ^3/uL (0-0.2) Nucleated Red Blood Cells 0.7 % Prothrombin Time 10.2 sec (9.3-11.8) Prothrombin Time INR 0.96 (0.9-1.15) Activated Partial Thromboplast Time 27.5 SEC (24.5-34.5) Sodium Level 139 mmol/L (136-145) Potassium Level 3.8 mmol/L (3.5-5.1) Chloride Level 108 mmol/L (98-107) Carbon Dioxide Level 20 mmol/L (20-31) Anion Gap 11 (5-15) Blood Urea Nitrogen 12 mg/dL (9-23) Creatinine 0.72 mg/dL (0.550-1.02) Glomerular Filtration Rate Calc 115 mL/min (>90) BUN/Creatinine Ratio 16.7 (10.0-20.0) Serum Glucose 89 mg/dL (74-106) Calcium Level 9.6 mg/dL (8.7-10.4) Total Bilirubin 0.5 mg/dL (0.2-1.0) Aspartate Amino Transferase (AST) 20 U/L (<34) Alanine Aminotransferase (ALT) 19 U/L (7-40) Alkaline Phosphatase 168 U/L (46-116) Total Protein 6.5 g/dL (5.7-8.2) Albumin 3.5 g/dL (3.2-4.8) Treponema pallidum Antibody Non-reactive (Negative) Urine Color Colorless (Yellow) Urine Clarity Turbid (Clear) Urine pH 5.5 (5.0-9.0) Urine Specific Coats 1.013 (1.001-1.035) Urine Protein Negative (Negative) Urine Ketones Negative (Negative) Urine Blood Negative /uL (Negative) Urine Nitrite Negative (Negative) Urine Bilirubin Negative (Negative) Urine Urobilinogen Normal mg/dL (Negative) Urine Leukocyte Esterase 1+ /uL (Negative) Urine RBC 2 /hpf (0 - 4) Urine Microscopic WBC 6 /HPF (0-5) Urine Squamous Epithelial Cells Mod /hpf (<5) Urine Bacteria Mod /hpf (None Seen) Urine Glucose Normal mg/dL (Normal) Urine Opiates Screen Neg (NEGATIVE) Urine Fentanyl Screen Neg (NEGATIVE) Urine Barbiturates Screen Neg (NEGATIVE) Urine Phencyclidine Screen Neg (NEGATIVE) Urine Amphetamines Screen Neg (NEGATIVE) Urine Benzodiazepines Screen Neg (NEGATIVE) Urine Cocaine Screen Neg (NEGATIVE) Urine Cannabinoids Screen Neg (NEGATIVE) Other Laboratory Tests 03/05/25 09:30 Brief Hx & Hospital Course: 38 GDMA1 Operations or Procedures none Condition at Discharge: Good Final Diagnosis/Problems List GDM A1 38 wks Discharge Disposition: Home Discharge Statement: "Patient was advised to return to the ER or call 911 if any headaches, dizziness, shortness of breath, chest pain, abdominal pain, bleeding, fevers, or worsening of medical condition. Patient was counseled about treatment plan, medications, possible side effects, patientverbalized understanding. All questions were answered to the best of my ability. This discharge took greater then 30 minutes in planning, reviewing documentation, counseling the patient, and discussing with other team members." ASSESSMENT ASSESSMENT Assessment Visit Coding OBGYN Date of Service: Mar 05, 2025 Billing Provider: TONYA TAMAYO DO VALIDATION CONSULTANT Common Visit Codes: 49815-[id number] INP/OBS CARE(MOD), 05900-GVY/OBS SAME DATE (LOW), 70014-MYO/OBS SAME DATE (HIGH) VALIDATION CONSULTANT Procedure Codes: 64674-20- NON-STRESS TEST TONYA TAMAYO DO Mar 05, 2025 23:10
[2025-03-06] VITALS (18 sets, daily range): BP systolic 101–141; BP diastolic 50–92; PULSE 76–107; RESP 14–18; TEMP 97.6–98.4; O2SAT 90–100
[~2025-03-06] VITALS: Ht 144.8 cm; Wt 66.2 kg
--- NOTE | 2025-03-06 02:40 | DVHHP ---
ADMIT DATE: 03/06/2025 CHIEF COMPLAINT: Contractions. HISTORY OF PRESENT ILLNESS: The patient is a 29-year-old 1, para 0 with EDC 03/18, estimated gestational age of 38+ weeks, admitted for labor and breech presentation. The patient has been in and out of the hospital complaining of contractions, baby is breech. She was on Procardia. She went off Procardia. She continues with contractions and labor. Subsequently, the patient is undergoing primary for breech presentation and labor. Risks, complications, indications, and alternatives discussed with the patient. All options reviewed. The patient fully understands. She wishes to proceed with planned procedure. PAST MEDICAL HISTORY: None. PAST SURGICAL HISTORY: None. SOCIAL HISTORY: None. FAMILY HISTORY: None. OB AND METAL SPRAYER MACHINED PARTS HISTORY: The patient is primigravid. ALLERGIES: No known drug allergies. REVIEW OF SYSTEMS: Consistent with HPI. PHYSICAL EXAMINATION: VITAL SIGNS: Stable, afebrile. HEENT: Within normal limits. CARDIOVASCULAR: Regular rate and rhythm. LUNGS: Clear to auscultation. BREASTS: Symmetrical, no masses. ABDOMEN: Gravid. Positive heart. PELVIC: 1-2 cm, soft, -2, breech presentation. Uterine contractions q. 2-4 minutes. EXTREMITIES: No clubbing, cyanosis, or edema. IMPRESSION: Intrauterine at 38+ weeks with breech presentation, in labor. PLAN: Primary low transverse section. Informed consent obtained. Risks, complications of surgery including infection, bleeding, hematoma formation, injury to bowel or bladder, surrounding organ, possibility of DVT, pulmonary embolism, and risks of anesthesia discussed with the patient. Options reviewed. All questions answered. The patient fully understands. The patient wishes to proceed with planned procedure. Alternative routes of delivery discussed with the patient. The patient wishes to proceed with primary . Hanane Russo DO MZ/HEM TID: [id number] RECEIPT: [id number]
[2025-03-06] MEDS: METOCLOPRAMIDE HCL 5MG/ml INJ 2ml VIAL IV ONE (04:15)
[2025-03-06] MEDS: SODIUM CITR/CITRIC ACID ORAL SOLN 30 ML PO ONE (04:15)
[2025-03-06] MEDS: LACTATED RINGER'S 1,000 ML IV ONE (04:30)
[2025-03-06] MEDS: LACTATED RINGER'S 1,000 ML IV SCH ×2 (05:20→17:53)
[2025-03-06] MEDS ORDERED: DOCU-94 PO (06:22)
[2025-03-06] MEDS ORDERED: HYDR-4072 PO (06:22)
[2025-03-06] MEDS ORDERED: IBUP-1456 PO (06:22)
[2025-03-06] MEDS: ceFAZolin 2 GM/D5W50ml 50 ML IV ONE (06:29)
[2025-03-06] MEDS ORDERED: LACT. RINGERS/OXYTOCIN 20UNITS 1,000 ML IV ONE (06:30)
[2025-03-06] MEDS ORDERED: ceFAZolin 1GM/50ML 50 ML IV SCH (06:30)
[2025-03-06] MEDS: GUM (CHEWING) 1 GUM CHEW CHEW ONE (06:30)
[2025-03-06] MEDS ORDERED: MORPHINE SULF PF 5 MG/10 ML VIAL ONE (06:31)
[2025-03-06] MEDS ORDERED: PHENYLEPHRINE HCL 10 MG/ML VL ONE (06:33)
[2025-03-06] MEDS ORDERED: ePHEDrine SULFATE 50 MG/ML AMP ONE (06:33)
[2025-03-06] MEDS ORDERED: MIDAZOLAM HCL 2MG/2ML 2ml VIAL (1mg/ml) ONE (06:56)
[2025-03-06] MEDS: CARBOPROST TROMETHAMINE 250 MCG/1ML VIAL IM ONE (07:08)
[2025-03-06] MEDS ORDERED: oxyTOCIN 10 UNIT/ML 10ML VIAL ONE (07:24)
[2025-03-06] MEDS ORDERED: MEPERIDINE HCL (25 MG/ML) 1ML VIAL IV PRN (07:45)
[2025-03-06] MEDS ORDERED: ONDANSETRON HCL 4 MG/2 ML VIAL IV PRN (07:45)
[2025-03-06] MEDS ORDERED: diphenhdrAMINE HCL 50 MG/1 ML VL IV PRN (07:45)
[2025-03-06] MEDS ORDERED: ACETAMINOPHEN IV 1000 MG/100ML (10MG/ML) IV PRN (07:45)
[2025-03-06] MEDS ORDERED: DexAMETHasone SOD PHOS 10MG/1ML VIAL INJ IV PRN (07:45)
[2025-03-06] MEDS ORDERED: KETOROLAC TROMETH 30 MG/ML 1ML VIAL IV PRN ×2 (07:45→22:15)
[2025-03-06] MEDS ORDERED: HYDROmorphone HCL 2 MG/ML VL/or syr IV PRN ×2 (07:45)
[2025-03-06] MEDS: ONDANSETRON HCL 4 MG/2 ML VIAL IV ONE (07:45)
[2025-03-06] MEDS ORDERED: NALOXONE HCL 0.4 MG/ML VIAL IV PRN (07:45)
[2025-03-06] MEDS: NALBUPHINE HCL 10 MG/1ml INJECTION SUBCUT ONE (07:45)
--- NOTE | 2025-03-06 08:01 | DVHOP2 ---
Operative Report DATE OF OPERATION: 03/06/25 PREOPERATIVE DIAGNOSES: iup at 38+wks in early labor,desires pcs for breech presentation POSTOPERATIVE DIAGNOSES: same,nuchal cord SURGEON: Hanane Russo D.O./jason ANESTHESIOLOGIST: rosa maria TYPE OF ANESTHESIA : spinal CONSENT: The patient was informed of the risks and benefits of the procedure. The patient was informed of the risks and benefits of the procedure. These include but are not limited to , complications of anesthesia, postoperative infection, incomplete relief of symptoms, recurrence of symptoms, damage to blood vessels, nerves and tendons, deep venous thrombosis, pulmonary embolism and possible need for repeat surgery in the future. FINDINGS: Baby [b] with Apgars of [8] and [9]. Grossly normal appearing tubes and ovaries.breech ,nuchal cord PROCEDURES: Primary low transverse section. PROCEDURE IN DETAIL: The patient was taken to the operating room. She already had an epidural in place. She was then placed in supine position with a leftward tilt. A Pfannenstiel skin incision was made 2 cm above the symphysis pubis. This incision was carried to the underlying layer of fascia. The fascia was nicked in the midline. The incision was extended laterally. The superior aspect of the fascial incision was grasped and elevated. The same procedure was done to the inferior aspect of the fascial incision. The rectus muscles were then in the midline. Peritoneum was identified and entered. Peritoneal incision was extended superiorly and inferiorly with good visualization of the bladder. Bladder blade was inserted. Vesicouterine peritoneum was identified and entered. Lower uterine segment was incised in a transverse fashion. The was delivered from breech presentation. Infant was baby [b] with Apgars [8] and [9]. Placenta was then removed manually. Uterus was exteriorized and cleared of all clots and debris. The incision was repaired using 0 Vicryl in a double-layered fashion. No bleeding was noted. Uterus was then returned to the abdomen. The gutters were cleared off all clots and debris. Peritoneum was closed using 0 Vicryl, fascia was closed using 0 Maxon, and skin was closed using eric. The patient tolerated the procedure well. She was taken to the recovery room in stable condition. ESTIMATED BLOOD LOSS: Estimated blood loss was noted to be 800 mL. Visit Coding OBN Date of Service: Mar 06, 2025 Billing Provider: HANANE RUSSO DO SPECIAL EDUCATION PARAEDUCATOR Common Visit Codes: 61327-UTOUDTS OBS CARE (HIGH) SPECIAL EDUCATION PARAEDUCATOR Procedure Codes: 31652-A-UPHYBLW DELIVERY ONLY HANANE RUSSO DO Mar 06, 2025 08:01
--- NOTE | 2025-03-06 08:04 | POSTOP ---
Post-Operative Note Post-Operative Note Preop Diagnosis gdma1,iupmat 38wks with breech ,early labor Postop Diagnosis: same,nuchal cord Operation performed pltcs Specimen baby boy,apgars 8-9,breech,nuchal cord Anesthesia: Regional Anesthesiologist: nuygen Blood Loss(fluid mgmt) 800ml Surgeon Ryland Russo Outside Machinist jason Implant na Complications & Mgmt none Date 03/06/25 Time 08:01 Visit Coding OBGYN Date of Service: Mar 06, 2025 Billing Provider: RYLAND RUSSO DO ALUMINUM SHEET CUTTER Common Visit Codes: 66851-DIBWVEG OBS CARE (HIGH) ALUMINUM SHEET CUTTER Procedure Codes: [id number] DELIVERY ONLY RYLAND RUSSO DO Mar 06, 2025 08:04
[2025-03-06] MEDS: ONDANSETRON HCL 4 MG/2 ML VIAL IV PRN (12:25)
[2025-03-06] MEDS: ceFAZolin 1GM/50ML 50 ML IV SCH (14:27)
[2025-03-06] MEDS: ACETAMINOPHEN IV 1000 MG/100ML (10MG/ML) IV PRN (19:11)
[2025-03-06 21:36] LABS: Basophils # (auto) 0.1 10 ^3/uL (0-0.2); Basophils % (auto) 0.6 % (0.0-2.0); Eosinophils # (auto) 0.3 10 ^3/uL (0-0.8); Eosinophils % (auto) 1.9 % (0.0-7.0); Hematocrit 32.2 % (36.0-46.0); Hemoglobin 11.1 g/dL (12.2-16.2); Lymphocytes # (auto) 1.5 10 ^3/uL (0.4-5.4); Lymphocytes % (auto) 8.5 % (10.0-50.0); Mean Corpuscular Hemoglobin 29.8 pg (28.0-32.0); Mean Corpuscular Hgb Conc. 34.5 g/dL (32.0-36.0); Mean Corpuscular Volume 86.4 fL (80.0-100.0); Monocytes # (auto) 1.1 10 ^3/uL (0-1.3); Neutrophils # (auto) 14.8 10 ^3/uL (1.6-8.6); Nucleated Red Blood Cells % 0.1 %; Platelet Count (auto) 206 10^3/uL (140-450); Red Blood Cells 3.72 10^6/uL (4.0-5.20); Red Cell Distribution Width 13.9 % (11.8-14.3); White Blood Cell 17.9 10^3/uL (4.4-10.8)
[2025-03-07] VITALS (11 sets, daily range): BP systolic 96–120; BP diastolic 52–83; PULSE 76–104; RESP 16–20; TEMP 97.7–98.6; O2SAT 97–100
--- NOTE | 2025-03-07 00:05 | DVHPN2 ---
Progress Note Date Seen: Mar 07, 2025 Subjective Pt has dangled but not ambulated due to feeling lightheaded. Cruz catheter in place. tolerating ice chips, no flatus yet. vital signs Vital Sign Date Time Temp Pulse Resp B/P (MAP) Pulse Ox O2 Delivery O2 Flow Rate FiO2 03/06/25 19:00 98.4 76 17 109/78 (88) 99 98.4 03/06/25 18:30 Room Air 03/06/25 09:15 0.0 03/06/25 08:14 100 Total Intake and Output 03/06/25 03/06/25 03/07/25 15:00 23:00 07:00 Output Total 450 ml 155 ml Balance -450 ml -155 ml medications Current Medications Medications Dose Ordered Sig/Kurt Route Start Time Stop Time Status Last Admin Dose Admin Lactated Ringer's 1,000 ml @ 125 mls/hr Q8H IV 03/06/25 04:15 03/06/25 23:48 125 MLS/HR Ondansetron HCl 4 mg Q4HP PRN IV 03/06/25 06:30 03/06/25 12:25 4 MG Diphenhydramine HCl 25 mg Q4HP PRN IV 03/06/25 07:45 Lactated Ringer's 1,000 ml @ 125 mls/hr Q8H IV 03/06/25 08:45 03/06/25 17:53 125 MLS/HR Acetaminophen 1,000 mg Q8HPRN PRN IV 03/06/25 08:45 03/07/25 08:44 03/06/25 19:11 1,000 MG Cefazolin Sodium 50 ml @ 100 mls/hr Q8H IV 03/06/25 14:30 03/07/25 06:59 03/06/25 22:35 100 MLS/HR Ketorolac Tromethamine 30 mg Q6HPRN PRN IV 03/06/25 22:15 03/11/25 22:14 laboratory and microbiology Laboratory Tests 03/06/25 21:05 03/05/25 09:30 Test 03/05/25 09:30 Range/Units Serum Glucose 89 74-106 mg/dL Objective O: VSS Chest: heart sounds normal and lung sounds clear bilaterally Abd: soft, non-tender, fundus at U/firm/midline, active bowel sounds, no rebound or guarding Incision: sylke dressing open to air, clean/dry/intact Ext: Non-tender, No edema, 2+ BLE DTRs Lochia: minimal See lab results Problems(with codes): (1) Precipitous drop in hematocrit (2) S/P primary low transverse Assessment/Plan A/P: 29yo now POD#1 s/p primary for breech -Continue with post-op PP care -Advance diet as tolerated Plan discussed with: Patient, Spouse Visit Coding OBGYN Date of Service: Mar 07, 2025 Billing Provider: RAMYA SANABRIA CNM LEAD CASTER HELPER Common Visit Codes: [id number] INP/OBS CARE(HIGH) RAMYA SANABRIA CNM Mar 07, 2025 00:05
[2025-03-07 07:10] LABS: Basophils # (auto) 0.1 10 ^3/uL (0-0.2); Basophils % (auto) 0.4 % (0.0-2.0); Eosinophils # (auto) 0.1 10 ^3/uL (0-0.8); Eosinophils % (auto) 0.5 % (0.0-7.0); Hematocrit 33.8 % (36.0-46.0); Hemoglobin 11.6 g/dL (12.2-16.2); Lymphocytes # (auto) 1.3 10 ^3/uL (0.4-5.4); Lymphocytes % (auto) 8.9 % (10.0-50.0); Mean Corpuscular Hemoglobin 29.5 pg (28.0-32.0); Mean Corpuscular Hgb Conc. 34.2 g/dL (32.0-36.0); Mean Corpuscular Volume 86.3 fL (80.0-100.0); Monocytes % (auto) 6.4 % (0.0-12.0); Neutrophils # (auto) 12.5 10 ^3/uL (1.6-8.6); Neutrophils % (auto) 83.8 % (37.0-80.0); Nucleated Red Blood Cells % 0.1 %; Platelet Count (auto) 199 10^3/uL (140-450); Red Blood Cells 3.92 10^6/uL (4.0-5.20); Red Cell Distribution Width 14.4 % (11.8-14.3); White Blood Cell 14.9 10^3/uL (4.4-10.8)
[2025-03-07] MEDS ORDERED: SIMETHICONE 80 MG CHEWABLE TABLET PO PRN (13:30)
[2025-03-07] MEDS ORDERED: HYDROcodone-ACET 10/325MG TAB PO PRN (13:45)
[2025-03-07] MEDS: IBUPROFEN 800 MG TAB PO PRN (15:13)
[2025-03-07] MEDS: HYDROcodone-ACET 5/325MG TAB PO PRN (19:25)
[2025-03-07] MEDS ORDERED: PREN-96 PO (21:34)
[2025-03-07] MEDS ORDERED: IBUP-1456 PO (21:34)
[2025-03-07] MEDS: DOCUSATE SOD 100 MG CAP PO SCH (22:01)
--- NOTE | 2025-03-08 00:40 | DVHPN2 ---
Progress Note Date Seen: Mar 08, 2025 Subjective S: bleeding is less, eating food without issues, denies lightheaded/dizziness, pain well controlled with oral medications, no concerns with urinating, passing flatus, no BM yet, ambulating well, and formula vital signs Vital Sign Date Time Temp Pulse Resp B/P (MAP) Pulse Ox O2 Delivery O2 Flow Rate FiO2 03/07/25 23:28 97.9 86 20 116/71 (86) 100 97.9 03/07/25 18:45 Room Air 03/06/25 09:15 0.0 03/06/25 08:14 100 Total Intake and Output 03/07/25 03/07/25 03/08/25 15:00 23:00 07:00 Output Total 300 ml Balance -300 ml medications Current Medications Medications Dose Ordered Sig/Kurt Route Start Time Stop Time Status Last Admin Dose Admin Docusate Sodium 100 mg Q12HR PO 03/07/25 22:00 03/07/25 22:01 100 MG Dimethicone 80 mg QID PRN PO 03/07/25 13:30 Ibuprofen 800 mg Q8HP PRN PO 03/07/25 13:30 03/07/25 15:13 800 MG Acetaminophen/ Hydrocodone Bitart 1 tab Q4HPRN PRN PO 03/07/25 13:30 03/07/25 19:25 1 TAB Acetaminophen/ Hydrocodone Bitart 1 tab Q4HPRN PRN PO 03/07/25 13:45 laboratory and microbiology Laboratory Tests 03/07/25 06:58 03/05/25 09:30 Test 03/05/25 09:30 Range/Units Serum Glucose 89 74-106 mg/dL Objective O: VSS Chest: heart sounds normal and lung sounds clear bilaterally Abd: soft, non-tender, fundus 1 below U/firm/midline, active bowel sounds, no rebound or guarding Incision: sylke dressing open to air, clean/dry/intact Ext: Non-tender, No edema, 2+ BLE DTRs Lochia: minimal See lab results Problems(with codes): (1) Precipitous drop in hematocrit (2) S/P primary low transverse Assessment/Plan A: 29yo now POD#2 s/p primary Rh+ Rubella equivocal P: D/C home today Rx sent to pharmacy MMR ordered precautions and preeclampsia warning signs reviewed F/U with [facility] office in 1 week Plan discussed with: Patient, Spouse Visit Coding OBGYN Date of Service: Mar 08, 2025 Billing Provider: RAMYA SANABRIA CNM APPLICATION PACKAGER Common Visit Codes: [id number] INP/OBS CARE(HIGH) RAMYA SANABRIA CNM Mar 08, 2025 00:40
--- NOTE | 2025-03-08 00:43 | DVHDS2 ---
Obstetrics Discharge Summary Obstetrics Discharge Summary Date of Admission: Mar 06, 2025 Date of Discharge: Mar 08, 2025 Reason For Admission: Onset of Labor, Section (Primary) Procedures: NST Intrapartum Procedures: (LTCS) Procedures: Antibiotics, Hct/date: (03/07/25), Hgb/date: (03/07/25) Operative Complicat: None Discharge Diagnosis: Term -Delivered Discharge Information: Activity (as tolerated, no heavy lifting and nothing in the vagina for 6 weeks), Diet (Routine), Medications (Rx sent), Instructions (Routine), Discharge to (Home), Accompanied by (partner), Discarge date (03/08/25) Visit Coding OBGYN Date of Service: Mar 08, 2025 Billing Provider: RAMYA SANABRIA CNM EARTHMOVING LABOURER Common Visit Codes: 32232-WDE/OBS DISCH DAY <30MIN RAMYA SANABRIA CNM Mar 08, 2025 00:43
[2025-03-08 02:40] VITALS: BP 118/85; PULSE 88; RESP 16; TEMP 98.1; O2SAT 100
[2025-03-08 07:10] VITALS: BP 124/88; PULSE 96; RESP 16; TEMP 97.9; O2SAT 100
[2025-03-08] MEDS: TETANUS-DIPTH-ACEL PERTUSSIS 0.5ML SYR Tdap IM ONE (10:09)
[2025-03-08] MEDS: MEASLES, MUMPS & RUBELLA VAC(MMRII) 0.5ML SC ONE (10:14)
== END 2025-03-08 11:28 | disposition home or self-care (01) | DRG 540 ==
LOC: LDRP 04:01
PROVIDERS: ADMIT Obstetrics & Gynecology; ATTEND Obstetrics & Gynecology
PROC: 10D00Z1 Extraction of Products of Conception, Low, Open Approach (ICD-10-PCS; principal; 2025-03-06 06:33)
DX: O32.1XX0 Maternal care for breech presentation, not applicable or unspecified (principal); R71.0 Precipitous drop in hematocrit; O24.420 Gestational diabetes mellitus in childbirth, diet controlled; Z37.0 Single live birth; O69.81X0 Labor and delivery complicated by cord around neck, without compression, not applicable or unspecified; Z3A.38 38 weeks gestation of pregnancy
CPT/HCPCS: 36415; 59025; 80053; 80307; 81001; 85025; 85610; 85730; 86780; 86803; 86850; 86900; 86901; 90471; 94760; 94762; 96360; 96361; 96365; 96366; 96372; G0378; J0131; J2250; J2405; J2590